=== PATIENT | female | born 1960 | race American Indian/Alaskan Native ===

== ENCOUNTER 2016-06-03 07:23 | Emergency (ER) | payer MEDICAID ==
[2016-06-03 07:52] VITALS: BP 140/77
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
== END 2016-06-03 10:20 | disposition home or self-care (01) ==
LOC: ED 07:23
DX: G89.29 Other chronic pain (principal); M62.838 Other muscle spasm; M25.562 Pain in left knee; R51 Headache
CPT/HCPCS: 99282

== ENCOUNTER 2017-02-21 09:07 | Outpatient (CLI) | payer MEDICAID ==
--- NOTE | 2017-02-21 11:38 | XRay Report ---
Cervical spine series: Cervical pain. Routine views are obtained in addition to the lateral flexion and extension views. Large traction spurs are identified anteriorly bridging the C4-C7 levels. Posterior spurs are present inferiorly at C4. The interspace between C4-5 is significantly narrowed and mild narrowing between C5 and C6. No subluxation identified on the flexion and extension views. There is significant compromise bilaterally at the C4 foramina. The bones appear generally osteopenic. Impressions: Significant degenerative disease predominantly at the C4-5 level with lesser changes at C5-6. Lumbar spine series: Back pain. Anterior traction spurs are noted inferiorly at L2 and L5 levels. The vertebral height, alignment, and interspaces are preserved. The apophyseal joints are aligned and relatively preserved. The bones appear relatively well mineralized for age. Impression: Mild spondylosis as indicated. No acute finding suspected.
== END 2017-02-21 09:08 | disposition home or self-care (01) ==
LOC: XRAY 09:07
PROVIDERS: ATTEND Internal Medicine
DX: M47.812 Spondylosis without myelopathy or radiculopathy, cervical region (principal); M47.814 Spondylosis without myelopathy or radiculopathy, thoracic region; M50.321 Other cervical disc degeneration at C4-C5 level
CPT/HCPCS: 72050; 72114

== ENCOUNTER 2017-02-28 08:18 | Outpatient (CLI) | payer MEDICAID ==
[2017-02-28 08:51] LABS: Hematocrit 41.8 % (30.3-42.9); Mean Corpuscular HGB Conc 34 % (30-34); Mean Corpuscular Hemoglobin 32 pg (28-32); Mean Corpuscular Volume 96 fl (79-97); Platelet Count 310 K/mm3 (140-440); Red Blood Count 4.35 M/mm3 (3.65-5.03)
[2017-02-28 09:16] LABS: Albumin 4.1 g/dL (3.9-5); BUN/Creatinine Ratio 28; Blood Urea Nitrogen 17 mg/dL (7-17); Calcium 9.2 mg/dL (8.4-10.2); Hemolysis Index 104; Lipase 42 units/L (13-60)
[2017-02-28 09:21] LABS: Free T4 (Free Thyroxine) 1.21 ng/dL (0.76-1.46)
[2017-02-28 10:45] LABS: Basophils % (Manual) 0 % (0.0-1.8); Eosinophils % (Manual) 0 % (0.0-4.3); Total Cells Counted 100
[2017-02-28 10:46] LABS: Large Platelets Rare; Platelet Estimate Consistent w Auto; RBC Morphology Normal
[2017-02-28 11:32] LABS: Alanine Aminotransferase 35 units/L (7-56)
[2017-02-28 14:40] LABS: Chol/HDL Ratio 5.63 %; HDL Cholesterol 47 mg/dL (40-59); LDL Cholesterol,Direct 185 mg/dL (50-130)
== END 2017-02-28 08:19 | disposition home or self-care (01) ==
LOC: LAB 08:18
DX: Z11.59 Encounter for screening for other viral diseases (principal); K76.0 Fatty (change of) liver, not elsewhere classified; J02.9 Acute pharyngitis, unspecified; K29.20 Alcoholic gastritis without bleeding; E78.2 Mixed hyperlipidemia; R19.7 Diarrhea, unspecified; R16.0 Hepatomegaly, not elsewhere classified
CPT/HCPCS: 36415; 80053; 80061; 82106; 82150; 83690; 84439; 84443; 85007; 85025

== ENCOUNTER 2017-05-25 05:50 | Day surgery (SDC) | payer MEDICAID ==
[~2017-05-25 05:50] MED LIST: NACL 0.9% IR ONE; VANCOMYCIN PHARMACY TO DOSE IV SCH
[2017-05-25] MEDS ORDERED: VERSED IV NR (06:00)
[2017-05-25] MEDS ORDERED: LACTATED RINGERS 1,000 ML IV SCH (06:00)
[2017-05-25] MEDS ORDERED: NACL BACTERIOSTATIC INFILTRATI ONE (07:02)
[2017-05-25] MEDS ORDERED: MARCAINE 0.5% 30 ML INFILTRATI ONE (07:26)
[2017-05-25] MEDS ORDERED: DIPRIVAN 10 MG/ML IV ONE (07:33)
--- NOTE | 2017-05-25 07:35 | Anesthesia Consultation ---
Anesthesia Consult and Med Hx Date of service: 05/25/17 - Airway Anesthetic Teeth Evaluation: Poor (missing) ROM Head & Neck: Adequate Mental/Hyoid Distance: Adequate Mallampati Class: Class III Intubation Access Assessment: Probably Good - Pulmonary Exam CTA: Yes - Cardiac Exam Cardiac Exam: RRR - Pre-Operative Health Status ASA Pre-Surgery Classification: ASA3 Proposed Anesthetic Plan: General - Pulmonary Hx Smoking: Yes (2 CIG/DAY FOR 15 YEARS) Hx Asthma: Yes COPD: No Hx Pneumonia: No - Cardiovascular System Hx Hypertension: Yes (GREATER THAN 10 YEARS) - Central Nervous System Hx Psychiatric Problems: Yes (schizophrenia, anxiety) - Endocrine Hx End Stage Renal Disease: No Hx Non-Insulin Dependent Diabetes: Yes - Hematic Hx Anemia: No - Other Systems Hx Alcohol Use: Yes (DAILY) Hx Substance Use: Yes (h/o alcohol abuse) Hx Cancer: No Hx Obesity: Yes - Additional Comments Anesthesia Medical History Comments: STANLEY. medical clearance appreciated
--- NOTE | 2017-05-25 07:35 | Anesthesia Day of Surgery ---
Anesthesia Day of Surgery - Day of Surgery Patient Examined: Yes Patient H&P Reviewed: Yes Patient is NPO: Yes
[2017-05-25] MEDS ORDERED: SUBLIMAZE ONE (07:44)
[2017-05-25] MEDS ORDERED: PROVENTIL IH PRN (07:45)
[2017-05-25] MEDS ORDERED: VANCOMYCIN/0.45 NS 1 GM/250 ML 1 GM/250 ML BAG IV SCH (08:00)
[2017-05-25] MEDS ORDERED: PEPCID IV NR (08:00)
[2017-05-25] MEDS ORDERED: VANCOMYCIN/NS 1 GM/250 ML 1 GM/250 ML BAG IV SCH (08:00)
[2017-05-25] MEDS ORDERED: MARCAINE 0.5% INFILTRATI ONE (08:33)
[2017-05-25] MEDS ORDERED: ZEMURON IV ONE (08:58)
[2017-05-25] MEDS ORDERED: XYLOCAINE CARDIAC IV ONE (08:58)
[2017-05-25] MEDS ORDERED: ZOFRAN ONE (08:58)
[2017-05-25] MEDS ORDERED: NEOSTIGMINE ONE (08:58)
[2017-05-25] MEDS ORDERED: NACL 0.9% IR ONE (09:05)
--- NOTE | 2017-05-25 09:12 | Discharge Summary ---
Short Stay Discharge Plan Activity: other (observe x 4 hrs then june d/c if stable. ice chips today. cl liq in am. solid diet in 48 hrs. no lifting over 5 lbs x 2 wks. keep dressings dry x 5 days) Weight Bearing Status: Partial Weight Bearing Diet: other Wound: keep clean and dry Additional Instructions: aleve I po q 6-8 hrs prn for breakthrough pain. surfak I po q am x 3 Call if any abd pain N, V or fever. Follow up with: BEV COLE MD [Staff Physician] - 7 Days
[2017-05-25] MEDS ORDERED: ROBINUL ONE (09:21)
--- NOTE | 2017-05-25 09:38 | Operative Report ---
PREOPERATIVE DIAGNOSES: 1. Abdominal pain and rule out incisional/ventral hernia. 2. Rule out adhesions. PROCEDURE: 1. Diagnostic laparoscopy. 2. Lysis of adhesions. 3. Laparoscopic ventral hernia repair with mesh. SURGEON: Musa Chavira MD QC TECH: __Mae___. ANESTHESIA: General. ESTIMATED BLOOD LOSS: Minimal. DRAINS: No drains. COMPLICATIONS: No complications. DESCRIPTION OF PROCEDURE: The patient was taken to the operating room, prepped and draped in usual sterile fashion. Veress needle was inserted and CO2 insufflation begun. A 5 mm trocar was then inserted and camera inserted. Inspection of the abdomen revealed extensive amount of lower thickened omental adhesions from previous [employer] surgery in the low midline region. Also, incisional hernia was indeed noted in an old trocar site in the subxiphoid area from a previous cholecystectomy. Lysis of adhesions was performed using the EndoShears with cautery as well as the Harmonic scalpel. The area was inspected for bleeding and noted to be dry. Attention was then focused to the hernia site. The falciform ligament was transected using the Harmonic scalpel. The fascial defect was then well visualized. A 10 trocar was inserted over the fascial defect. A circular Ventralex medium mesh was then placed through the trocar in pullback to the peritoneum. A tacker was then used to tack the mesh in its entire circumference. A second internal layer flavio also placed. Pictures were taken of pre-and post-repair as well as pictures of the adhesions and lysis of adhesions. All areas were then inspected and noted to be dry. The lysed omentum was also inspected and no oozing or bleeding noted. The hernia site was noted to be well covered. No other fascial defects noted. Two 5-mm lateral ports were then removed under direct visualization. No bleeding or oozing noted. The final 5 mm trocar was used to expel the CO2 and the trocar removed. The fascia was then covered over the incisional hernia site including the portion of the strap for added security. All areas were irrigated copiously and dried. Checked for hemostasis and noted to be dry. The skin in all port sites was closed with subcuticular 4-0 Vicryl. A 0.5% Marcaine was infiltrated over the port site for postoperative pain relief. The patient tolerated the procedure well and left the OR in stable condition. JOB# [id number] DEANA/SINAI ESPINOZA
[2017-05-25] MEDS: DILAUDID IV PRN ×4 (10:12→10:45)
[2017-05-25] MEDS ORDERED: PROVENTIL IH NR (10:30)
[2017-05-25] MEDS ORDERED: NORCO 5/325 PO PRN (12:00)
--- NOTE | 2017-05-25 14:27 | Post Anesthesia Evaluation ---
- Post Anesthesia Evaluation Patient Participated: Yes Airway Patent: Yes Stable Respiratory Function: Yes Nausea/Vomiting: No Temp > 96.8F: Yes Pain Manageable: Yes Adequeate Hydration: Yes Anesthesia Complications: No
[2017-05-25 17:39] VITALS: BP 105/65
== END 2017-05-25 14:37 | disposition home or self-care (01) ==
LOC: OR 05:50
PROVIDERS: ATTEND Surgery
PROC: 0WQF4ZZ Repair Abdominal Wall, Percutaneous Endoscopic Approach (ICD-10-PCS; principal; 2017-05-25)
DX: K43.9 Ventral hernia without obstruction or gangrene (principal); K66.0 Peritoneal adhesions (postprocedural) (postinfection); I10 Essential (primary) hypertension; J45.909 Unspecified asthma, uncomplicated; E11.9 Type 2 diabetes mellitus without complications; E66.9 Obesity, unspecified; F20.9 Schizophrenia, unspecified; F17.210 Nicotine dependence, cigarettes, uncomplicated; F41.9 Anxiety disorder, unspecified; Z79.899 Other long term (current) drug therapy; Z88.0 Allergy status to penicillin; Z88.8 Allergy status to other drugs, medicaments and biological substances; Z91.018 Allergy to other foods; Z90.49 Acquired absence of other specified parts of digestive tract
CPT/HCPCS: 49652; 82962; C1781; J1170; J2001; J2250; J2405; J2704; J2710; J3010; J3370; J7120

== ENCOUNTER 2017-10-04 07:05 | Emergency (ER) | payer MEDICAID ==
[2017-10-04 07:16] VITALS: BP 141/64
[2017-10-04] MEDS ORDERED: TYLENOL PO ONE (08:55)
--- NOTE | 2017-10-04 09:06 | Emergency Department Report ---
ED Fall HPI - General Chief Complaint: Fall Stated Complaint: BACK PAIN Time Seen by Provider: 10/04/17 08:23 Source: patient Mode of arrival: Ambulatory - History of Present Illness Initial Comments: This is a 57-year-old female nontoxic, well nourished in appearance, no acute signs of distress presents to the ED with c/o of bilateral knee pain and low back pain 2 days. Patient stated that she had a ground level fall and landed on her knees and fell back on her back. Patient denies any other trauma. Patient denies any head trauma. Patient denies any numbness, tingling, fever, chills, nausea, vomiting, chest pain, shortness of breath, headache, stiff neck. Patient denies any joint swelling or joint redness. Patient denies decreased range of motion. Patient stated has decreased gait due to pain. Allergies includes PCN and Ibuprofen. MD Complaint: fall -: days(s) (2) Fall From: standing Fall Witnessed: no Place Fall Occurred: home Loss of Consciousness: none Prolonged Down Time?: no Symptoms Prior to Fall: none Location: back Location - Extremities: Left: Knee, Right: Knee Severity: mild Severity scale (0 -10): 8 Quality: aching Context: tripped/slipped Associated Symptoms: denies. denies: headache, neck pain, numbness, weakness, chest paint, shortness of breath, abdominal pain, hematuria, unable to walk, lightheaded, vertigo, confusion - Related Data Home Medications Medication Instructions Recorded Confirmed Last Taken Citalopram [celeXA] 20 mg PO QDAY 05/25/17 05/25/17 05/22/17 Divalproex Sodium [Depakote ER] 500 mg PO 05/25/17 05/24/17 Fenofibrate Nanocrystallized 145 mg PO 05/25/17 05/23/17 [Fenofibrate] Loratadine [Claritin] 10 mg PO DAILY 05/25/17 05/25/17 05/21/17 Meloxicam [Mobic] 7.5 mg PO BID 05/25/17 05/25/17 05/16/17 Metformin HCl 500 mg PO DAILY 05/25/17 05/25/17 05/23/17 Montelukast [Singulair] 10 mg PO DAILY 05/25/17 05/25/17 05/23/17 OLANZapine 5 mg PO 05/25/17 05/18/17 Ziprasidone [Geodon] 40 mg PO 05/25/17 05/18/17 diphenhydrAMINE [Benadryl CAP] 50 mg PO QHS PRN 05/25/17 05/25/17 05/23/17 Previous Rx's Medication Instructions Recorded Last Taken Type Docusate Sodium [Colace] 100 mg PO BID PRN #20 capsule 06/12/15 Unknown Rx Albuterol Sulfate [Ventolin HFA] 2 puff IH Q4H PRN #1 hfa.aer.ad 12/27/15 Unknown Rx Famotidine [Pepcid] 20 mg PO BID #30 tablet 12/27/15 Unknown Rx Lisinopril [Zestril TAB] 40 mg PO QDAY #30 tablet 12/27/15 05/24/17 Rx [place] Carbonate [[place] 450 mg PO DAILY #30 tablet.er 12/27/15 Unknown Rx Carbonate ER] methOCARBAMOL [Robaxin TAB] 500 mg PO BID #15 tab 06/03/16 Unknown Rx traMADol [Ultram 50 MG tab] 50 mg PO Q6HR PRN #15 tablet 06/03/16 Unknown Rx HYDROcodone/ACETAMINOPHEN [Primghar 1 - 2 each PO Q4HR PRN #30 tablet 05/25/17 Unknown Rx 10-325 Tablet] Acetaminophen [Tylenol Arthritis] 650 mg PO Q8H PRN #30 tablet.er 10/04/17 Unknown Rx Cyclobenzaprine [Flexeril] 10 mg PO QHS PRN #10 tablet 10/04/17 Unknown Rx Allergies Allergy/AdvReac Type Severity Reaction Status Date / Time banana [Banana] Allergy Intermediate Swelling Verified 10/04/17 07:15 Penicillins Allergy Swelling Verified 10/04/17 07:15 ibuprofen AdvReac Vomiting Verified 10/04/17 07:15 oatmeal Allergy Hives Uncoded 05/22/17 11:27 ED Review of Systems ROS: Stated complaint: BACK PAIN Other details as noted in HPI Constitutional: denies: chills, fever Eyes: denies: eye pain, eye discharge, vision change ENT: denies: ear pain, throat pain Respiratory: denies: cough, shortness of breath, wheezing Cardiovascular: denies: chest pain, palpitations Endocrine: no symptoms reported Gastrointestinal: denies: abdominal pain, nausea, diarrhea Genitourinary: denies: urgency, dysuria, discharge Musculoskeletal: back pain, arthralgia. denies: joint swelling Skin: denies: rash, lesions Neurological: denies: headache, weakness, paresthesias Psychiatric: denies: anxiety, depression Hematological/Lymphatic: denies: easy bleeding, easy bruising ED Past Medical Hx - Past Medical History Hx Hypertension: Yes Hx Diabetes: Yes (X 20YEARS) Hx Deep Vein Thrombosis: Yes Hx Arthritis: Yes Hx Psychiatric Treatment: Yes (schizophrenia, ANXIETY) Hx Asthma: Yes Hx COPD: No Hx HIV: No Additional medical history: anemia - Surgical History Hx Cholecystectomy: Yes Additional Surgical History: X 3 - Social History Smoking Status: Current Every Day Smoker Substance Use Type: None - Medications Home Medications: Home Medications Medication Instructions Recorded Confirmed Last Taken Type Docusate Sodium [Colace] 100 mg PO BID PRN #20 capsule 06/12/15 12/26/15 Unknown Rx Albuterol Sulfate [Ventolin HFA] 2 puff IH Q4H PRN #1 hfa.aer.ad 12/27/15 Unknown Rx Famotidine [Pepcid] 20 mg PO BID #30 tablet 12/27/15 Unknown Rx Lisinopril [Zestril TAB] 40 mg PO QDAY #30 tablet 12/27/15 05/24/17 Rx [place] Carbonate [[place] 450 mg PO DAILY #30 tablet.er 12/27/15 Unknown Rx Carbonate ER] methOCARBAMOL [Robaxin TAB] 500 mg PO BID #15 tab 06/03/16 Unknown Rx traMADol [Ultram 50 MG tab] 50 mg PO Q6HR PRN #15 tablet 06/03/16 Unknown Rx Citalopram [celeXA] 20 mg PO QDAY 05/25/17 05/25/17 05/22/17 History Divalproex Sodium [Depakote ER] 500 mg PO 05/25/17 05/24/17 History Fenofibrate Nanocrystallized 145 mg PO 05/25/17 05/23/17 History [Fenofibrate] HYDROcodone/ACETAMINOPHEN [Primghar 1 - 2 each PO Q4HR PRN #30 tablet 05/25/17 Unknown Rx 10-325 Tablet] Loratadine [Claritin] 10 mg PO DAILY 0405/25/17 05/21/17 History Meloxicam [Mobic] 7.5 mg PO BID 05/25/17 05/25/17 05/16/17 History Metformin HCl 500 mg PO DAILY 05/25/17 05/25/17 05/23/17 History Montelukast [Singulair] 10 mg PO DAILY 05/25/17 05/25/17 05/23/17 History OLANZapine 5 mg PO 05/25/17 05/18/17 History Ziprasidone [Geodon] 40 mg PO 05/25/17 05/18/17 History diphenhydrAMINE [Benadryl CAP] 50 mg PO QHS PRN 05/25/17 05/25/17 05/23/17 History Acetaminophen [Tylenol Arthritis] 650 mg PO Q8H PRN #30 tablet.er 10/04/17 Unknown Rx Cyclobenzaprine [Flexeril] 10 mg PO QHS PRN #10 tablet 10/04/17 Unknown Rx ED Physical Exam - General Limitations: No Limitations General appearance: alert, in no apparent distress - Head Head exam: Present: atraumatic, normocephalic - Eye Eye exam: Present: normal appearance Pupils: Present: normal accommodation - ENT ENT exam: Present: normal exam, mucous membranes moist - Neck Neck exam: Present: normal inspection, full ROM. Absent: tenderness, meningismus, lymphadenopathy - Respiratory Respiratory exam: Present: normal lung sounds bilaterally. Absent: respiratory distress, wheezes, rales, rhonchi, stridor, chest wall tenderness, accessory muscle use, decreased breath sounds, prolonged expiratory - Cardiovascular Cardiovascular Exam: Present: regular rate, normal rhythm, normal heart sounds. Absent: bradycardia, tachycardia, irregular rhythm, systolic murmur, diastolic murmur, rubs, gallop - GI/Abdominal GI/Abdominal exam: Present: soft, normal bowel sounds. Absent: distended, tenderness, guarding, rebound, rigid, diminished bowel sounds - Rectal Rectal exam: Present: deferred - Extremities Exam Extremities exam: Present: normal inspection, full ROM, tenderness, normal capillary refill. Absent: joint swelling - Expanded Lower Extremity Exam Left Hip exam: Present: normal inspection (bilateral exam), full ROM (bilateral exam) . Absent: tenderness, swelling Upper Leg exam: Present: normal inspection (bilateral exam), full ROM ( bilateral exam). Absent: tenderness, swelling Knee exam: Present: normal inspection (bilateral exam), full ROM (bilateral exam ), tenderness (bilateral exam), full knee extension (bilateral exam). Absent: swelling, abrasion, laceration, ecchymosis, deformity, crepidus, dislocation, effusion, pain w/ pronation/supination, posterior draw sign, pain/laxity with valgus, pain/laxity with varus Lower Leg exam: Present: normal inspection (bilateral exam), full ROM ( bilateral exam). Absent: tenderness, swelling Ankle exam: Present: normal inspection (bilateral exam), full ROM (bilateral exam). Absent: tenderness, swelling Foot/Toe exam: Present: normal inspection (bilateral exam), full ROM (bilateral exam). Absent: tenderness, swelling Neuro vascular tendon exam: Present: no vascular compromise (bilateral exam). Absent: pulse deficit, abnormal cap refill, motor deficit, sensory deficit, tendon deficit, extremity cold to touch, pallor, abnormal 2-point discrimination , decreased fine/light touch, foot drop, peroneal nerve deficit, significant pain with passive ROM of distal joint Gait: Positive: observed and normal (bilateral exam) - Back Exam Back exam: Present: normal inspection, full ROM, paraspinal tenderness (lumbar paraspinal). Absent: tenderness, CVA tenderness (R), CVA tenderness (L), muscle spasm, vertebral tenderness, rash noted - Expanded Back Exam Expanded Back exam: Absent: saddle anesthesia Back exam: Negative Straight Leg Raising: Left, Right - Neurological Exam Neurological exam: Present: alert, oriented X3, normal gait - Psychiatric Psychiatric exam: Present: normal affect, normal mood - Skin Skin exam: Present: warm, dry, intact, normal color. Absent: rash ED Course Vital Signs 10/04/17 07:15 Temperature 98.9 F Pulse Rate 75 Respiratory 18 Rate Blood Pressure 141/64 O2 Sat by Pulse 99 Oximetry - Reevaluation(s) Reevaluation #1: 10/04/17 09:06 Patient is speaking in full sentences with no signs of distress noted. ED Medical Decision Making - Medical Decision Making This is a 57-year-old female that presents with low back strain and bilateral knee strains. Patient is stable was examined by me. There is no spinal tenderness. There is no cauda equina syndrome during examination. No bladder or bowel instability. I referred patient to an orthopedic doctor for further evaluation for possible MRI. X-ray has been obtained and dictated by the radiologist. Patient is notified of the x-ray report with noted by the patient. Patient does have normal gait with no tenderness and no joint swelling. No ecchymosis. no joint redness or swelling. Not warm to touch. No signs of cellulites present. Patient received Motrin in the ED which preceded his symptoms has resolved and subsided. Patient is discharged with muscle relaxant and Motrin. Patient has a walker in the ED. Patient was instructed not to operate any machinery while taking muscle relaxant as they cause her drowsiness. Patient was referred to Follow-up with a primary care/orthopedic doctor in 3-5 days or if symptoms worsen and continue return to emergency room as soon as possible. At time of discharge, the patient does not seem toxic or ill in appearance. No acute signs of distress noted. Patient agrees to discharge treatment plan of care. No further questions noted by the patient. This chart is dictated with using [employer] D[employer]ation [employer] Critical care attestation.: If time is entered above; I have spent that time in minutes in the direct care of this critically ill patient, excluding procedure time. ED Disposition Clinical Impression: Strain of knee, bilateral Low back strain Qualifiers: Encounter type: initial encounter Qualified Code(s): S39.012A - Strain of muscle, fascia and tendon of lower back, initial encounter Disposition: TO HOME OR SELFCARE Is pt being admited?: No Does the pt Need Aspirin: No Condition: Stable Instructions: Low Back Strain (ED), Cyclobenzaprine (By mouth), Knee Pain (ED) , RICE Therapy (ED) Additional Instructions: Follow-up with a primary care/orthopedic doctor in 3-5 days or if symptoms worsen and continue return to emergency room as soon as possible. Take ibuprofen and Flexeril as prescribed. Do not operate heavy machinery while taking Flexeril due to sedation Prescriptions: Cyclobenzaprine [Flexeril] 10 mg PO QHS PRN #10 tablet PRN Reason: Muscle Spasm Acetaminophen [Tylenol Arthritis] 650 mg PO Q8H PRN #30 tablet.er PRN Reason: Pain, Moderate (4-6) Referrals: FUNMI SUERO MD [Primary Care Provider] - 3-5 Days KEKE NOEL MD [Staff Physician] - 3-5 Days [facility] [Outside] - 3-5 Days [facility] [Outside] - 3-5 Days Forms: Work/School Release Form(ED)
--- NOTE | 2017-10-04 09:54 | XRay Report ---
LUMBOSACRAL SPINE, 3 VIEWS: History: Low back pain Findings: Normal height and alignment of lumbar vertebra. Moderate degenerative disc disease is noted at L5-S1. Mild diffuse facet arthropathy. The sacrum and SI joints are unremarkable. No significant change is demonstrated since 02/21/17. Impression: Lumbar spondylosis as described. No acute process is noted.
--- NOTE | 2017-10-04 09:56 | XRay Report ---
BILATERAL KNEES, 3 VIEWS History: Bilateral knee pain Findings: Mild to moderate osteoarthritic changes are identified in the medial compartments of both knees. The left knee is slightly more affected. There is no evidence for fracture or bone lesion. There is a 1.7 cm calcific density in the popliteal fossa on the left side which probably represents a calcified foreign body within a popliteal cyst. The soft tissues are unremarkable otherwise. Impression: Osteoarthritis as described. Probable calcified foreign body in the left popliteal cyst.
== END 2017-10-04 10:11 | disposition home or self-care (01) ==
LOC: ED 07:05
DX: S39.012A Strain of muscle, fascia and tendon of lower back, initial encounter (principal); S83.91XA Sprain of unspecified site of right knee, initial encounter; S83.92XA Sprain of unspecified site of left knee, initial encounter; I10 Essential (primary) hypertension; E11.9 Type 2 diabetes mellitus without complications; M19.90 Unspecified osteoarthritis, unspecified site; F20.9 Schizophrenia, unspecified; J45.909 Unspecified asthma, uncomplicated; D64.9 Anemia, unspecified; F17.200 Nicotine dependence, unspecified, uncomplicated; Z90.49 Acquired absence of other specified parts of digestive tract; Z88.0 Allergy status to penicillin; Z91.018 Allergy to other foods; Z88.6 Allergy status to analgesic agent; Z79.899 Other long term (current) drug therapy; Z86.718 Personal history of other venous thrombosis and embolism; W18.39XA Other fall on same level, initial encounter; Y93.89 Activity, other specified; Y99.8 Other external cause status; Y92.098 Other place in other non-institutional residence as the place of occurrence of the external cause
CPT/HCPCS: 72100

== ENCOUNTER 2018-04-05 09:16 | Outpatient (CLI) | payer MEDICAID ==
[2018-04-05 10:46] LABS: Basophils # (Auto) 0.1 K/mm3 (0.0-0.1); Basophils % (Auto) 1.3 % (0.0-1.8); Eosinophils # (Auto) 0.1 K/mm3 (0.0-0.4); Eosinophils % (Auto) 0.7 % (0.0-4.3); Hematocrit 41.5 % (30.3-42.9); Hemoglobin 14.3 gm/dl (10.1-14.3); Lymphocytes # (Auto) 3.9 K/mm3 (1.2-5.4); Lymphocytes % (Auto) 49.9 % (13.4-35.0); Mean Corpuscular HGB Conc 34 % (30-34); Mean Corpuscular Volume 96 fl (79-97); Monocytes # (Auto) 0.5 K/mm3 (0.0-0.8); Monocytes % (Auto) 6.8 % (0.0-7.3); Platelet Count 278 K/mm3 (140-440); Red Blood Count 4.31 M/mm3 (3.65-5.03); Red Cell Distribution Width 13.1 % (13.2-15.2)
[2018-04-05 11:04] LABS: Alanine Aminotransferase 49 units/L (7-56); Albumin 4.4 g/dL (3.9-5); BUN/Creatinine Ratio 26; Blood Urea Nitrogen 13 mg/dL (7-17); Calcium 9.4 mg/dL (8.4-10.2); HDL Cholesterol 49 mg/dL (40-59); Hemolysis Index 5; LDL Cholesterol,Direct 153 mg/dL (50-130)
[2018-04-05 12:12] LABS: Hepatitis B Surface Antigen Non-Reactive (Negative); Hepatitis C Virus Antibody Non-Reactive (NonReactive)
== END 2018-04-05 09:17 | disposition home or self-care (01) ==
LOC: LAB 09:16
PROVIDERS: ATTEND Internal Medicine
DX: E11.9 Type 2 diabetes mellitus without complications (principal); I10 Essential (primary) hypertension; E55.9 Vitamin D deficiency, unspecified; E78.5 Hyperlipidemia, unspecified; J45.901 Unspecified asthma with (acute) exacerbation; M19.90 Unspecified osteoarthritis, unspecified site; Z87.891 Personal history of nicotine dependence; Z72.89 Other problems related to lifestyle
CPT/HCPCS: 36415; 80053; 80061; 80074; 82306; 83036; 85025

== ENCOUNTER 2018-05-23 09:34 | Outpatient (CLI) | payer MEDICAID ==
[2018-05-23 10:26] LABS: Blood Urea Nitrogen 11 mg/dL (7-17)
--- NOTE | 2018-05-23 16:44 | Cat Scan Report ---
PROCEDURE: CT ABDOMEN PELVIS WO CON HISTORY: ADHESIONS, VENTRAL HERNIA FINDINGS: Unenhanced CT of the abdomen and pelvis was performed and data was reformatted in the sagit kim and coronal planes. Comparison is made with prior examination of January 31, 2018. The heart is normal in size. There is lingular linear atelectasis but otherwise the lung bases appear clear. ABDOMEN: There has been a cholecystectomy. There is mild fatty infiltration of the liver. The spleen is unremarkable. The adrenal glands are within normal limits. No focal pancreatic lesion is seen. There has been an anterior ventral hernia repair. No recurrent hernia ventral is seen in this region. There is a small fat-containing umbilical hernia. No bowel extends into this hernia. Pelvis: There is a normal appendix. There is no evidence of diverticulitis. The uterus, adnexa and urinary bl adder are within normal limits. There is no free air. IMPRESSION: ABDOMEN: Cholecystectomy No bowel obstruction Pelvis: Normal appendix This document is electronically signed by Eladio Mejia MD., May 23 2018 04:42:29 PM ET
== END 2018-05-23 09:35 | disposition home or self-care (01) ==
LOC: CT 09:34
PROVIDERS: ATTEND Surgery
DX: K43.9 Ventral hernia without obstruction or gangrene (principal); K66.0 Peritoneal adhesions (postprocedural) (postinfection); K76.0 Fatty (change of) liver, not elsewhere classified; J45.901 Unspecified asthma with (acute) exacerbation; M19.90 Unspecified osteoarthritis, unspecified site; Z90.49 Acquired absence of other specified parts of digestive tract; F17.200 Nicotine dependence, unspecified, uncomplicated
CPT/HCPCS: 36415; 74176; 82565; 84520

== ENCOUNTER 2018-07-26 08:46 | Outpatient (CLI) | payer MEDICAID ==
[2018-07-26 10:39] LABS: Chol/HDL Ratio 5.45 %
[2018-07-31 15:08] LABS: Vitamin D, 25-OH, D2 <4 ng/mL
== END 2018-07-26 08:47 | disposition home or self-care (01) ==
LOC: LAB 08:46
PROVIDERS: ATTEND Internal Medicine
DX: E11.9 Type 2 diabetes mellitus without complications (principal); E78.5 Hyperlipidemia, unspecified; E55.9 Vitamin D deficiency, unspecified; J45.909 Unspecified asthma, uncomplicated; I10 Essential (primary) hypertension; Z90.710 Acquired absence of both cervix and uterus
CPT/HCPCS: 36415; 80061; 82306; 83036

== ENCOUNTER 2018-11-19 08:47 | Outpatient (CLI) | payer MEDICAID ==
[2018-11-19 12:03] LABS: Alanine Aminotransferase 60 units/L (7-56); Albumin 4.6 g/dL (3.9-5); BUN/Creatinine Ratio 17; Blood Urea Nitrogen 10 mg/dL (7-17); Calcium 9.2 mg/dL (8.4-10.2); Chol/HDL Ratio 5.31 %; HDL Cholesterol 47 mg/dL (40-59); Hemolysis Index 4; LDL Cholesterol,Direct TNR mg/dL (50-130)
== END 2018-11-19 08:48 | disposition home or self-care (01) ==
LOC: LAB 08:47
PROVIDERS: ATTEND Internal Medicine
DX: E78.5 Hyperlipidemia, unspecified (principal); R94.5 Abnormal results of liver function studies; I10 Essential (primary) hypertension; Z90.49 Acquired absence of other specified parts of digestive tract; Z90.710 Acquired absence of both cervix and uterus
CPT/HCPCS: 36415; 80053; 80061

== ENCOUNTER 2019-11-21 05:59 | Emergency (ER) | payer MEDICAID ==
[2019-11-21 06:15] VITALS: BP 150/91
--- NOTE | 2019-11-21 09:16 | Emergency Department Report ---
Chief Complaint: Extremity Problem,Nontraumatic Stated Complaint: KNEE PAIN/SEVERE HEADACHES Time Seen by Provider: 11/21/19 08:22 - HPI History of Present Illness: Patient is a 59-year-old female who presents emergency room with complaints of bilateral knee pain that has been ongoing for over a week. She denies any fall or injury. She states that she has had this knee pain for several years in the past. She has not seen a primary care doctor or an orthopedic since her knee pain has been exacerbating. She is ambulatory and she chronically walks with a walker. She denies any numbness or weakness. She has a past medical history of DM, HTN, asthma. She states that she did have a laparoscopic procedure on her left knee several years ago. Vitals are stable On exam: Non toxic appearing, no acute distress atraumatic, normocephalic normal appearance of the eyes, EOMI, no periorbital edema or ecchymosis moist mucus membranes no respiratory distress, no accessory muscle use No bony tenderness to palpation of the bilateral lower extremities, no edema of the bilateral extremities, no calf tenderness bilaterally, full range of motion of the bilateral lower extremities without difficulty, no obvious joint laxity, no joint edema, no erythema, no increased warmth, no skin changes, neurovascularly intact A&O x4, no focal neuro deficit skin is warm, dry, intact Patient is presenting with bilateral knee pain She has had no trauma She has no bony tenderness palpation, she has full range of motion She has no clinical signs of DVT, gout, septic joint, she has strong 2+ distal pulses, no signs of large joint effusion Symptoms are likely related to arthritis and this is most likely a chronic problem Discussed supportive care and symptomatic treatment with patient pt Will be referred to a primary care physician and orthopedic Discussed strict return precautions with patient Medical screening examination performed and there is no threat to life or limb at this time - Exam Vital Signs: Vital Signs 11/21/19 06:08 Temperature 98.1 F Pulse Rate 84 Respiratory 18 Rate Blood Pressure 150/91 O2 Sat by Pulse 97 Oximetry MSE screening note: Focused history and physical exam performed. ED Disposition for MSE Clinical Impression: Bilateral knee pain Qualifiers: Chronicity: acute Qualified Code(s): M25.561 - Pain in right knee; M25.562 - Pain in left knee Disposition: MED SCREENING EXAM-LEFT Is pt being admited?: No Does the pt Need Aspirin: No Condition: Stable Instructions: Arthralgia (ED) Additional Instructions: May take Tylenol as needed for discomfort. May use ice pack, heating pad, rest, Epson salt bath. May elevate the legs. Follow-up with orthopedic doctor. Follow-up with your primary care doctor. Return to emergency room for any new or worsening symptoms. Referrals: PRIMARY CARE, [Primary Care Provider] - 2-3 Days JESUS BIGGS MD [Staff Physician] - 2-3 Days [facility] [Provider Group] - 2-3 Days KEKE NOEL MD [Staff Physician] - 2-3 Days [facility] [Provider Group] - 2-3 Days Time of Disposition: 09:15 Print Language: FIJIAN
== END 2019-11-21 09:21 | disposition left against medical advice (07) ==
LOC: ED 05:59
DX: M25.562 Pain in left knee (principal); M25.561 Pain in right knee; Z53.21 Procedure and treatment not carried out due to patient leaving prior to being seen by health care provider

== ENCOUNTER 2020-03-13 08:23 | Outpatient (CLI) | payer MEDICAID ==
--- NOTE | 2020-03-13 10:02 | Ultrasound Report ---
ULTRASOUND ABDOMEN, LIMITED (RIGHT UPPER QUADRANT) INDICATION / CLINICAL INFORMATION: ABNORMAL LIVER FUNCTION RESULTS. COMPARISON: None available. FINDINGS: PANCREAS: Visualized portion shows no significant abnormality. LIVER: The liver measures 12.9 cm in length and demonstrates diffusely increased echogenicity. GALLBLADDER: No significant abnormality. BILE DUCTS: No significant abnormality. Common bile duct measures 2 mm. RIGHT KIDNEY: The right kidney measures 9.8 cm in length and is normal in echogenicity. FREE FLUID: None. ADDITIONAL FINDINGS: None. IMPRESSION: 1. Hepatic steatosis. Signer Name: Brent Tran MD Signed: 03/13/2020 9:58 AM Workstation Name: [id number]
--- NOTE | 2020-03-13 10:13 | XRay Report ---
LUMBOSACRAL SPINE 3 VIEWS INDICATION: LOW BACK PAIN. COMPARISON: None. IMPRESSION: Normal alignment. Mild degenerative disc disease is identified at L4-5 and L5-S1. Mild diffuse facet arthropathy. The SI joints are unremarkable. No acute osseous or soft tissue abnormali ty. LEFT KNEE 3 VIEWS INDICATION: LOW BACK PAIN. COMPARISON: None. IMPRESSION: No acute osseous or soft tissue abnormality. Moderate tricompartmental osteoarthritic changes are identified. The medial compartment is most affected. Chronic calcification measuring up to 1.3 cm overlies the course of the MCL suggesting chronic MCL injury. There is also a large calcifi ed body in the popliteal fossa measuring 1.8 cm which presumably represents a foreign body in a popli teal cyst. There is also a moderate joint effusion extending to the suprapatellar bursa. Signer Name: Adan Tsang Jr, MD Signed: 03/13/2020 10:09 AM Workstation Name: [id number]
[2020-03-13 10:34] LABS: Basophils # (Auto) 0.1 K/mm3 (0.0-0.1); Basophils % (Auto) 0.8 % (0.0-1.8); Eosinophils # (Auto) 0.1 K/mm3 (0.0-0.4); Eosinophils % (Auto) 0.7 % (0.0-4.3); Hematocrit 41.2 % (30.3-42.9); Hemoglobin 14.6 gm/dl (10.1-14.3); Lymphocytes # (Auto) 3.3 K/mm3 (1.2-5.4); Mean Corpuscular HGB Conc 36 % (30-34); Mean Corpuscular Volume 97 fl (79-97); Monocytes # (Auto) 0.6 K/mm3 (0.0-0.8); Monocytes % (Auto) 8.1 % (0.0-7.3); Platelet Count 343 K/mm3 (140-440); Red Blood Count 4.25 M/mm3 (3.65-5.03); Red Cell Distribution Width 13.3 % (13.2-15.2)
[2020-03-13 10:45] LABS: Alanine Aminotransferase 17 units/L (7-56); Albumin 4.3 g/dL (3.9-5); BUN/Creatinine Ratio 24; Blood Urea Nitrogen 26 mg/dL (7-17); Calcium 9.5 mg/dL (8.4-10.2); Chol/HDL Ratio 5.03 %; HDL Cholesterol 52 mg/dL (40-59); Hemolysis Index 7; LDL Cholesterol,Direct 197 mg/dL (50-130)
== END 2020-03-13 08:24 | disposition home or self-care (01) ==
LOC: US 08:23
PROVIDERS: ATTEND Internal Medicine
DX: K76.0 Fatty (change of) liver, not elsewhere classified (principal); M25.462 Effusion, left knee; M17.12 Unilateral primary osteoarthritis, left knee; M51.37 Other intervertebral disc degeneration, lumbosacral region; M71.22 Synovial cyst of popliteal space [Baker], left knee; Z00.00 Encounter for general adult medical examination without abnormal findings; E78.5 Hyperlipidemia, unspecified; E11.9 Type 2 diabetes mellitus without complications; I10 Essential (primary) hypertension; Z13.29 Encounter for screening for other suspected endocrine disorder; E55.9 Vitamin D deficiency, unspecified
CPT/HCPCS: 36415; 72100; 76705; 80053; 80061; 83036; 84443; 85025

== ENCOUNTER 2020-07-14 09:19 | Outpatient (CLI) | payer MEDICAID ==
[2020-07-14 10:20] LABS: Chol/HDL Ratio 3.8 %
== END 2020-07-14 09:20 | disposition home or self-care (01) ==
LOC: LAB 09:19
PROVIDERS: ATTEND Internal Medicine
DX: E11.9 Type 2 diabetes mellitus without complications (principal); E78.5 Hyperlipidemia, unspecified
CPT/HCPCS: 36415; 80061; 83036

== ENCOUNTER 2021-01-12 09:50 | Outpatient (CLI) | payer MEDICAID ==
[2021-01-12 10:50] LABS: Alanine Aminotransferase 24 units/L (7-56); Albumin 4.6 g/dL (3.9-5); Chol/HDL Ratio 3.63 %; HDL Cholesterol 57 mg/dL (40-59); LDL Cholesterol,Direct 122 mg/dL (50-130)
[2021-01-12 11:17] LABS: Bilirubin,Direct < 0.2 mg/dL (0-0.2)
== END 2021-01-12 09:51 | disposition home or self-care (01) ==
LOC: LAB 09:50
PROVIDERS: ATTEND Internal Medicine
DX: E11.9 Type 2 diabetes mellitus without complications (principal); E78.5 Hyperlipidemia, unspecified; R94.5 Abnormal results of liver function studies
CPT/HCPCS: 36415; 80061; 80076; 83036

== ENCOUNTER 2021-01-22 08:57 | Outpatient (CLI) | payer MEDICAID ==
--- NOTE | 2021-01-22 10:09 | XRay Report ---
BILATERAL KNEES 3 VIEWS INDICATION: BILATERAL KNEE PAIN. COMPARISON: Left knee 03/13/2020 IMPRESSION: Within the right knee, mild to moderate medial compartment osteoarthritic changes are evident. No ev idence for fracture, bone lesion or joint effusion. Within the left knee, moderate tricompartmental osteoarthritic changes are again noted and unchanged. Assumed chronic MCL injury is again noted. Small joint effusion is also again noted. 2.1 cm calcifie d density in the popliteal fossa probably represents a calcified intra-articular body in the poplitea l cyst. No significant change is appreciated since 03/13/2020. Signer Name: Adan Tsang Jr, MD Signed: 01/22/2021 10:05 AM Workstation Name: [id number]
== END 2021-01-22 08:58 | disposition home or self-care (01) ==
LOC: XRAY 08:57
PROVIDERS: ATTEND Internal Medicine
DX: M17.0 Bilateral primary osteoarthritis of knee (principal); M25.462 Effusion, left knee

== ENCOUNTER 2021-04-01 05:52 | Inpatient (IN) | payer MEDICAID ==
[2021-03-31 11:33] LABS: Hemoglobin 13.3 gm/dl (10.1-14.3); Mean Corpuscular HGB Conc 34 % (30-34); Mean Corpuscular Volume 97 fl (79-97); Platelet Count 345 K/mm3 (140-440); Red Blood Count 4.04 M/mm3 (3.65-5.03); Red Cell Distribution Width 13.4 % (13.2-15.2)
[2021-03-31 11:53] LABS: Alanine Aminotransferase 23 units/L (7-56); Albumin 4.3 g/dL (3.9-5); Blood Urea Nitrogen 23 mg/dL (7-17); Hemolysis Index 16
[2021-03-31 11:54] LABS: BUN/Creatinine Ratio 33
--- NOTE | 2021-03-31 12:51 | Anesthesia Consultation ---
Anesthesia Consult and Med Hx Date of service: 04/01/21 - Airway Anesthetic Teeth Evaluation: Chipped (Missing) ROM Head & Neck: Adequate Mental/Hyoid Distance: Adequate Mallampati Class: Class II Intubation Access Assessment: Good - Pre-Operative Health Status ASA Pre-Surgery Classification: ASA3 Proposed Anesthetic Plan: General Nerve Block: AC - Pulmonary Hx Smoking: Yes (SMOKED SINCE 2002) Hx Asthma: Yes (INHALER PRN) COPD: No Hx Pneumonia: No Hx Sleep Apnea: No (SHADY PRE SCREEN LOW RISK) - Cardiovascular System Hx Hypertension: Yes (X 9 YRS) - Central Nervous System CVA: Yes (TIA) Hx Back Pain: Yes Hx Psychiatric Problems: Yes (NOT COMPLIANT WITH MEDS/Bipolar/Anxiety/Schizophrenia) - Endocrine Hx End Stage Renal Disease: No Hx Liver Disease: Yes (? LIVER MASS PER H&P/ ABNORMAL LIVER FUNCTION TESTS) Hx Non-Insulin Dependent Diabetes: Yes (5.8) - Hematic Hx Anemia: Yes - Other Systems Hx Alcohol Use: Yes (ALCOHOL ABUSE PER H&P) Hx Substance Use: Yes (h/o alcohol abuse) Hx Cancer: No Hx Obesity: No
--- OUTSIDE RECORDS SUMMARY | 2021-04-01 05:54 | External Medical Summary ---
:1960 Author Organization [facility], [facility] Address [address] [place] [address] Care Team Providers Name Role Phone Landon Unavailable [phone] PROBLEMS Type Condition ICD9-CM AFI45-GC Onset Condition W/U Status Risk SNOM ED Notes Code Code Dates Status Code Problem Essential I10 Active confirmed 56684696 (primary) hypertension Problem Type 2 E11.9 Active confirmed 868510260 diabetes mellitus without complications Problem Bipolar F31.9 Active confirmed 16371567 disorder, unspecified Problem Unspecified H26.9 Active confirmed 17692053 9 cataract Problem Alcohol F10.10 Active confirmed 59283608 abuse, uncomplicated Problem Other F20.89 Active confirmed 35820110 schizophrenia Problem Low back pain M54.5 Active confirmed 716290 007 Problem Hyperlipidemi E78.5 Active confirmed 733867 04 a, unspecified Problem Vitamin D E55.9 Active confirmed 16607542 deficiency, unspecified Problem Personal Z86.73 Active confirmed 961672737 history of transient ischemic attack (TIA), and cerebral infarction without residual deficits Problem Abnormal R94.5 Active confirmed 423327690 results of liver function studies Problem Liver K76.9 Active confirmed 260175874 disease, unspecified Problem Other asthma J45.998 Active confirmed 499357 001 Problem Unilateral M17.12 Active confirmed 672432789 primary osteoarthriti s, left knee Problem Gastro-esopha K21.0 Active confirmed 266742 003 geal reflux disease with esophagitis Problem Acute N76.0 Active 96906065 Jeremy-Ri vaginitis ts Problem Vitamin E56.9 Active confirmed 12431873 deficiency, unspecified Problem Bilateral M17.0 Active confirmed 401377261 primary osteoarthriti s of knee Problem Gastro-esopha K21.9 Active confirmed 665284 005 geal reflux disease without esophagitis Problem Unspecified H60.93 Active confirmed 7390757 otitis externa, bilateral ALLERGIES Allergen (clinical Drug/Non Drug Reaction Allergy Type Onset Date S tatus drug ingredient) Allergy documented on EMR acetaminophen Tylenol([facility] rash Drug Allergy Active Code:[address]-82) Penicillins Penicillins rash Non Drug Allergy Active Motrin rash Drug Allergy Active ENCOUNTERS from 1960 to 2021-03-31 Encounter Location Date Provider Diagnosis [facility] [address] [facility] [place], Jogre nogueira [facility] [place] [address] IMMUNIZATIONS No Information SOCIAL HISTORY Sex Assigned At : Social History Observation Description Sex Assigned At Unknown REASON FOR REFERRAL from 1960 to 2021-03-31 Reason LT TKR Diagnosis 1 Hyperlipidemia, unspecified (E78.5) Diagnosis 2 Type 2 diabetes mellitus wit hout complications (E11.9) Diagnosis 3 Essential (primary) hyperten dewey (I10) Diagnosis 4 Alcohol abuse, uncomplicated (F10.10) Diagnosis 5 Other schizophrenia (F20.89) Diagnosis 6 Bipolar disorder, unspecifie d (F31.9) Diagnosis 7 Vitamin D deficiency, unspec ified (E55.9) Diagnosis 8 Pain in left knee (M25.562) Diagnosis 9 Personal history of transien t ischemic attack (TIA), and cerebral infarction with out residual deficits (Z86.73) Diagnosis 10 Abnormal results of liver fu nction studies (R94.5) Diagnosis 11 Low back pain (M54.5) Diagnosis 12 Bilateral primary osteoarthr itis of knee (M17.0) Diagnosis 13 Liver disease, unspecified ( K76.9) Referral Organization [facility] Referring Provider First Name Jorge Referring Provider Last Name Landon Referring Provider Specialty Orthopedic Surgery Referred Provider [facility], - Referral Priority Routine VITAL SIGNS No information MEDICATIONS Medication SIG (Take, Route, Notes Start Date End Date Status Frequency, Duration) Sertraline HCl 50 MG 1 tablet Orally Once a Not-Taking day Clopidogrel Bisulfate 75 1 tablet Orally Once a Active MG day for 90 days Ziprasidone HCl 60 MG 1 capsule with food Not-Taking Orally Twice a day Ciprodex 0.3-0.1 % 4 drops into affected Mar, Active ear Otic Twice a day for 7 day(s) Meloxicam 15 MG 1 tablet Orally Once a Active day for 30 day(s) Vitamin D 1 capsule Orally once Act kasia (Ergocalciferol) 24835 a week for 90 days UNIT Lisinopril 40 MG 1 tablet Orally Once a Active day for 90 days Rosuvastatin Calcium 20 1 tablet Orally Once a Active MG day for 90 days Famotidine 40 MG 1 tablet at bedtime Mar, Active Orally Once a day for 30 day(s) [place] Carbonate 300 MG 1 capsule Orally Three Not-Taking times a day metFORMIN HCl 500 MG 1 tablet with meals Active Orally Twice a day for 90 days Walker - as directed Mar, Active HYDROcodone-Acetaminophe 1 tablet as needed Feb, Active n 5-325 MG Orally every 6 hrs prn pain PROCEDURES No Information RESULTS No Results REASON FOR VISIT walker order MEDICAL (GENERAL) HISTORY Type Description Date Medical History Schizophrenia Medical History DJD Medical History Hyperlipidemia Medical History COD Medical History Addictive behavior Medical History T2DM Medical History bronchial asthma Medical History Hypertensive retinopathy Medical History alcohol abuse Medical History ventral hernia Medical History Arthritis or Joint Pain Medical History Asthma Medical History Back Pain Surgical History No know Surgical history Goals Section No Information Health Concerns No Information MEDICAL EQUIPMENT No Information MENTAL STATUS No Information FUNCTIONAL STATUS No Information ASSESSMENTS No Information PLAN OF TREATMENT Medication Medication Name Sig Start Date Stop Date Walker - as directed Mar, Referrals Referral Date Details LT TKR Next Appt Details Provider Name:Jorge Navarrete, 2021-04-01 08:00:00 AM, [address] [place], [address], Provider Name:Alexsander Cox, 04-14 08:30:00 AM, [address] [facility], [address], [place], [address], [phone] Insurance Providers Payer Name Payer Payer Insured Patient Coverage Coverage Subscriber Group Address Phone Name Relationship Start End Date Number Nu mber to Insured Date Medicaid [id number] [place], [place] self [id number] [facility] [phone]
[2021-04-01] MEDS ORDERED: ALPRAZolam 1 MG TAB PO NR (06:00)
[2021-04-01] MEDS ORDERED: fentaNYL 100 MCG/2 ML INJ IV NR (06:00)
[2021-04-01] MEDS ORDERED: GABAPENTIN 300 MG CAP PO NR (06:00)
[2021-04-01] MEDS ORDERED: MAGNESIUM OXIDE 400 MG TAB PO NR (06:00)
[2021-04-01] MEDS ORDERED: MIDAZOLAM 2 MG/2 ML INJ IV NR (06:00)
[2021-04-01] MEDS: LACTATED RINGERS 1,000 ML IV SCH ×3 (06:49→21:18)
[2021-04-01] MEDS ORDERED: VANCOMYCIN/NS 1 GM/250 ML 1 GM/250 ML BAG IV NR (07:00)
[2021-04-01] MEDS ORDERED: LIDOCAINE PF 100 MG/5 ML (CARDIAC SYRINGE) IV ONE (07:25)
[2021-04-01] MEDS ORDERED: ONDANSETRON 4 MG/2 ML INJ ONE (07:25)
[2021-04-01] MEDS ORDERED: dexAMETHasone 20 MG/5 ML VIAL ONE (07:25)
[2021-04-01] MEDS ORDERED: propofoL 200 MG/20 ML VIAL IV ONE (07:26)
[2021-04-01] MEDS ORDERED: fentaNYL 100 MCG/2 ML INJ ONE (07:28)
[2021-04-01] MEDS ORDERED: KETOROLAC 30 MG/1 ML INJ ONE (07:30)
[2021-04-01] MEDS ORDERED: MORPHINE 10 MG/1 ML INJ ONE (07:30)
[2021-04-01] MEDS ORDERED: TRANEXAMIC ACID 1,000 MG/10 ML ONE (07:30)
[2021-04-01] MEDS ORDERED: BUPIVACAINE/PF (0.5%) 5 MG/1 ML 30 ML VIAL INFILTRATI ONE ×2 (07:30→09:10)
[2021-04-01] MEDS ORDERED: dexAMETHasone 4 MG/ML VIAL ONE (07:35)
[2021-04-01] MEDS ORDERED: BUPIVACAINE/PF (0.25%) 2.5 MG/ML 30 ML VIAL INFILTRATI ONE (07:35)
--- NOTE | 2021-04-01 07:40 | Anesthesia Day of Surgery ---
Anesthesia Day of Surgery - Day of Surgery Patient Examined: Yes Patient H&P Reviewed: Yes Patient is NPO: Yes
[2021-04-01] MEDS ORDERED: BUPIVACAINE/PF (0.5%) 5 MG/1 ML 10 ML VIAL INFILTRATI ONE (07:42)
[2021-04-01] MEDS ORDERED: SODIUM CHLORIDE 0.9% 50 ML ONE (07:42)
[2021-04-01] MEDS ORDERED: SODIUM CHLORIDE 0.9% 100 ML ONE (07:42)
[2021-04-01] MEDS ORDERED: KETAMINE/STERILE WATER 50 MG/ML SYRINGE ONE (07:57)
[2021-04-01] MEDS ORDERED: HYDROmorphone 1 MG/1 ML INJ IV PRN (08:00)
[2021-04-01] MEDS ORDERED: ONDANSETRON 4 MG/2 ML INJ IV PRN (08:00)
[2021-04-01] MEDS ORDERED: MORPHINE 10 MG/1 ML INJ IM ONE (09:10)
[2021-04-01] MEDS ORDERED: KETOROLAC 30 MG/1 ML INJ IV ONE (09:10)
[2021-04-01] MEDS ORDERED: SODIUM CHLORIDE 0.9% IRRIG SOLN 2000 ML IR ONE (09:11)
[2021-04-01] MEDS ORDERED: SODIUM CHLORIDE 0.9% 50 ML VIAL INFILTRATI ONE (09:11)
[2021-04-01] MEDS ORDERED: MORPHINE 2 MG/1 ML INJ IV PRN (10:23)
[2021-04-01] MEDS ORDERED: KETOROLAC 30 MG/1 ML INJ IV PRN (10:23)
[2021-04-01] MEDS ORDERED: IBUPROFEN 600 MG TAB PO PRN (10:23)
--- NOTE | 2021-04-01 10:41 | Procedure Note ---
Date of procedure: 04/01/21 Pre-op diagnosis: Severe osteoarthritis left knee Post-op diagnosis: same Procedure: Left total knee replacement Procedure The patient was brought to the OR after being given a obturator nerve block and preoperative holding she was placed on the OR table supine position following induction elevation of anesthesia the patient is left lower extremity was prepped and draped in the usual sterile manner. A timeout procedure was done to identify the patient in the correct operative site. The leg was exsanguinated followed by inflation of the pneumatic tourniquet to 300 mmHg. A midline incision was made over the patella was taken down distally towards the tibial tubercle next the medial retinaculum was incised and the patella was inverted examination of the patient's knee joint revealed typical osteoarthritic changes with large bone spurs noted primarily in the medial compartment both the femoral and tibial's articular surfaces exhibited bare bone and large peripheral osteophytes next a large drill bit was used to enter the medullary canal this w as followed by placement of the distal femoral cutting Jig the distal femur was resected approximately 8-9 mm of bone was removed at this time. Attention was turned to the patient's proximal tibia using a external alignment guide the bone was cut using the medial surface as the low point of care was taken to protect the medial collateral ligaments, the tibial articular surface was then sized and a #3 tibial based ray was selected this was followed by placement of the fixation hole or keel into the proximal tibial medullary canal. Attention was turned to the distal femur and using a 4 and 1 cutting block a #3 component was selected AP anterior and posterior as well as Shamfer cuts were made and a #3 tibial tray and femoral component was placed and the knee was then taken to a range of motion she appeared to have stability in both the flexion and extension FOLLOWING this the trial components were removed the knee was then copiously irrigated any remaining soft tissue and bony debris were removed at this time. The cement was mixed followed by the tibial components were inserted beginning with the tibial based tray followed by the polyethylene insert {14mm} The femoral component was added and the excess cement and soft tissue were removed, the knee was held in extension until the cement hardened following hardening of cement the knee was then brought back into of flexion any remaining soft tissue and bony debris were removed at this time. The wound again was irrigated and was closed in a standard routine fashion. Dressings were applied the patient tolerated the procedure there were no complications she was then taken to post anesthesia recovery Anesthesia: MAC, regional Surgeon: KEKE NOEL (Dimitrios Ferguson, 1st assist) Estimated blood loss: minimal Pathology: list (Portions of the distal femur and proximal tibia were sent to pathology) Specimen disposition: to lab Condition: stable Disposition: PACU
--- NOTE | 2021-04-01 11:23 | XRay Report ---
LEFT KNEE 2 VIEW(S) INDICATION / CLINICAL INFORMATION: Postop evaluation COMPARISON: 03/13/2020 FINDINGS: BONES / JOINT(S): No acute fracture or subluxation. Patient is status post left total knee arthroplas ty. Hardware is without complication. SOFT TISSUES: Expected postoperative findings. Redemonstrated popliteal fossa calcified lesion. ADDITIONAL FINDINGS: None. Signer Name: Ócsar Madrid DO Signed: 04/01/2021 11:19 AM Workstation Name: [email or web address]
[2021-04-01] MEDS: HYDROmorphone 1 MG/1 ML INJ IV PRN ×2 (12:11→15:22)
[2021-04-01] MEDS: diphenhydrAMINE 25 MG CAP PO PRN (15:21)
--- NOTE | 2021-04-01 17:39 | Post Anesthesia Evaluation ---
- Post Anesthesia Evaluation Patient Participated: Yes Airway Patent: Yes Stable Respiratory Function: Yes Nausea/Vomiting: No Temp > 96.8F: Yes Pain Manageable: Yes Adequeate Hydration: Yes Anesthesia Complications: No Block Receding Appropriately: Yes Patient on Ventilator: No
[2021-04-01] MEDS: MORPHINE 4 MG/1 ML INJ IV PRN (20:24)
[2021-04-01] MEDS: DOCUSATE SODIUM 100 MG CAP PO SCH (21:18)
[2021-04-02] MEDS: MORPHINE 4 MG/1 ML INJ IV PRN ×3 (00:45→09:51)
[2021-04-02] MEDS: LACTATED RINGERS 1,000 ML IV SCH ×2 (05:50→16:10)
--- NOTE | 2021-04-02 08:55 | Post Anesthesia Evaluation ---
- Post Anesthesia Evaluation Patient Participated: Yes Airway Patent: Yes Stable Respiratory Function: Yes Nausea/Vomiting: No Temp > 96.8F: Yes Pain Manageable: Yes Adequeate Hydration: Yes Anesthesia Complications: No Block Receding Appropriately: Yes Patient on Ventilator: Yes
[2021-04-02] MEDS: ENOXAPARIN 40 MG/0.4 ML INJ SUB-Q SCH ×2 (09:59→10:35)
[2021-04-02] MEDS: DOCUSATE SODIUM 100 MG CAP PO SCH ×2 (09:59→23:23)
[2021-04-02] MEDS: diphenhydrAMINE 25 MG CAP PO PRN (10:00)
[2021-04-02] MEDS: HYDROmorphone 1 MG/1 ML INJ IV PRN ×3 (11:57→20:25)
--- NOTE | 2021-04-02 12:29 | Progress Note ---
Assessment and Plan continue PT and observation Subjective Date of service: 04/02/21 Interval history: c/o pain left leg.... Objective Vital signs: Vital Signs - 12hr 04/02/21 04/02/21 04/02/21 02:09 05:43 08:16 Temperature 98.3 F Pulse Rate 88 Respiratory 18 Rate Blood Pressure 129/77 [Left] O2 Sat by Pulse 96 95 93 Oximetry 04/02/21 08:34 Temperature Pulse Rate Respiratory Rate Blood Pressure [Left] O2 Sat by Pulse 97 Oximetry Incision: draining Weight bearing status: as tolerated - Labs CBC & BMP: 03/31/21 11:15 03/31/21 11:15 Labs: Abnormal lab results 04/01/21 04/02/21 04/02/21 Range/Units 22:02 07:25 11:53 POC Glucose 142 H 144 H 112 H (70-105) mg/dL
[2021-04-02] MEDS: KETOROLAC 30 MG/1 ML INJ IV PRN (13:52)
[2021-04-03] MEDS: HYDROmorphone 1 MG/1 ML INJ IV PRN ×5 (01:00→16:10)
[2021-04-03] MEDS: LACTATED RINGERS 1,000 ML IV SCH (02:38)
[2021-04-03] MEDS: KETOROLAC 30 MG/1 ML INJ IV PRN ×3 (02:38→16:05)
[2021-04-03] MEDS: DOCUSATE SODIUM 100 MG CAP PO SCH ×2 (10:32→21:44)
[2021-04-03] MEDS: ENOXAPARIN 40 MG/0.4 ML INJ SUB-Q SCH (10:33)
[2021-04-03] MEDS: MORPHINE 4 MG/1 ML INJ IV PRN ×2 (18:08→23:27)
[2021-04-03] MEDS: diphenhydrAMINE 25 MG CAP PO PRN (18:42)
[2021-04-04] MEDS: HYDROmorphone 1 MG/1 ML INJ IV PRN ×3 (04:22→20:18)
--- NOTE | 2021-04-04 07:11 | Consultation ---
History of Present Illness - Reason for Consult Consult date: 04/03/21 Medical management Requesting physician: KEKE NOEL - History of Present Illness 60-year-old female with multiple medical problems including coronary artery disease, asthma, bipolar disorder, hyperlipidemia, hypertension, GERD and vitamin D deficiency admitted for postop left total knee arthroplasty care. Patient underwent physical therapy and possible discharge tomorrow as per the yakov mirza. Consult was requested for medical management and weekend coverage. Past History Past Medical History: COPD, GERD, hypertension, hyperlipidemia, other (Bipolar disorder, vitamin D deficiency) Past Surgical History: total knee replacement (Left total knee arthroplasty) Social history: lives with family, full code Family history: hypertension Medications and Allergies Allergies Allergy/AdvReac Type Severity Reaction Status Date / Time banana [Banana] Allergy Intermediate Swelling Verified 10/04/17 07:15 Penicillins Allergy Swelling Verified 10/04/17 07:15 acetaminophen [From Tylenol] AdvReac GI ISSUES Verified 03/24/21 16:20 ibuprofen AdvReac Vomiting , Verified 03/24/21 16:20 SOB oatmeal Allergy Hives Uncoded 05/22/17 11:27 Home Medications Medication Instructions Recorded Confirmed Last Taken Type lisinopriL [Zestril TAB] 40 mg PO QDAY #30 tablet 12/27/15 03/24/21 03/31/21 Rx HYDROcodone/ACETAMINOPHEN [[place] 1 - 2 each PO Q4HR PRN #30 tablet 05/25/17 03/24/21 03/31/21 Rx 10-325 Tablet] Meloxicam [Mobic] 15 mg PO DAILY 05/25/17 03/24/21 03/31/21 History Metformin HCl 500 mg PO BID 05/25/17 03/24/21 03/31/21 History Ziprasidone [Geodon] 40 mg PO BID 05/25/17 04/01/21 03/31/21 History Albuterol Sulfate [Proventil Hfa] 2 puff IH PRN PRN 03/24/21 03/24/21 03/31/21 History Cholecalciferol (Vitamin D3) 50,000 unit PO QWEEK 03/24/21 03/24/21 03/31/21 History [Vitamin D3 50,000UNIT CAP] Ciprofloxacin HCl/Dexameth 1 drop AU BID 03/24/21 03/24/21 03/31/21 History [Ciprodex Otic Suspension] Clopidogrel [Plavix] 75 mg PO QDAY 03/24/21 04/01/21 03/11/21 History Famotidine [Pepcid] 40 mg PO QHS 03/24/21 03/24/21 03/31/21 History [place] Carbonate [[place] 300 mg PO TID 03/24/21 03/24/21 03/31/21 History Carbonate ER] Rosuvastatin Calcium [Crestor] 20 mg PO DAILY 03/24/21 03/24/21 03/31/21 History Sertraline [Zoloft] 50 mg PO QDAY 03/24/21 03/24/21 03/31/21 History Apixaban [Eliquis] 5 mg PO DAILY #30 04/02/21 Unknown Rx Oxycodone HCl/Acetaminophen 1 each PO Q6HR PRN #30 04/02/21 Unknown Rx [Percocet 10/325 mg] Active Meds: Active Medications Diphenhydramine HCl (Diphenhydramine 25 Mg Cap) 25 mg PO Q8H PRN PRN Reason: Itching Last Admin: 04/03/21 18:42 Dose: 25 mg Docusate Sodium (Docusate Sodium 100 Mg Cap) 100 mg PO BID [facility] Last Admin: 04/03/21 21:44 Dose: 100 mg Enoxaparin Sodium (Enoxaparin 40 Mg/0.4 Ml Inj) 40 mg SUB-Q QDAY [facility] Last Admin: 04/03/21 10:33 Dose: 40 mg Hydromorphone HCl (Hydromorphone 1 Mg/1 Ml Inj) 0.5 mg IV Q4H PRN PRN Reason: Pain , Severe (7-10) Last Admin: 04/04/21 04:22 Dose: 0.5 mg Lactated Ringer's (Lactated Ringers) 1,000 mls @ 125 mls/hr IV DIRECT [facility] Last Admin: 04/03/21 02:38 Dose: 125 mls/hr Ketorolac Tromethamine (Ketorolac 30 Mg/1 Ml Inj) 15 mg IV Q4H PRN PRN Reason: Pain, Mild (1-3) Stop: 04/07/21 10:00 Last Admin: 04/03/21 16:05 Dose: 15 mg Morphine Sulfate (Morphine 2 Mg/1 Ml Inj) 2 mg IV Q4H PRN PRN Reason: Pain, Moderate (4-6) Last Admin: 04/01/21 17:46 Dose: 2 mg Morphine Sulfate (Morphine 4 Mg/1 Ml Inj) 4 mg IV Q4H PRN PRN Reason: Pain , Severe (7-10) Last Admin: 04/03/21 23:27 Dose: 4 mg Review of Systems All systems: negative Exam - Constitutional Vitals: Temp Pulse Resp BP Pulse Ox 99.7 F H 97 H 20 166/70 95 04/04/21 04:17 04/04/21 04:17 04/04/21 04:22 04/04/21 04:17 04/04/21 04:17 General appearance: Present: no acute distress, well-nourished - EENT Eyes: Present: PERRL ENT: hearing intact, clear oral mucosa - Neck Neck: Present: supple, normal ROM - Respiratory Respiratory effort: normal Respiratory: bilateral: CTA - Cardiovascular Heart rate: 78 Rhythm: regular Heart Sounds: Present: S1 & S2. Absent: rub, click - Extremities Extremities: pulses symmetrical, No edema, abnormal (Decreased range of motion at the left knee) Extremity abnormal: other (Left knee in dressing) Peripheral Pulses: within normal limits - Abdominal General gastrointestinal: Present: soft, non-tender, non-distended, normal bowel sounds Female genitourinary: Present: normal - Integumentary Integumentary: Present: clear, warm, dry - Musculoskeletal Musculoskeletal: gait normal, strength equal bilaterally - Psychiatric Psychiatric: appropriate mood/affect, intact judgment & insight - Neurologic Neurologic: CNII-XII intact, moves all extremities Results - Labs CBC & Chem 7: 03/31/21 11:15 03/31/21 11:15 Assessment and Plan - Patient Problems (1) S/P total knee arthroplasty Current Visit: Yes Status: Acute Qualifiers: Laterality: left Qualified Code(s): Z96.652 - Presence of left artificial knee joint Plan to address problem: Patient had left total knee arthroplasty Patient undergoing physical therapy and possible discharge on Monday (2) Coronary artery disease Current Visit: Yes Status: Chronic Qualifiers: Coronary Disease-Associated Artery/Lesion type: lummi artery [place] vs. transplanted heart: lummi heart Plan to address problem: Patient on Plavix and Eliquis (3) Bipolar 1 disorder, mixed, severe Current Visit: No Status: Chronic Plan to address problem: Patient on lithium Check lithium level (4) Hypertension Current Visit: Yes Status: Chronic Qualifiers: Hypertension type: primary hypertension Qualified Code(s): I10 - Essential (primary) hypertension Plan to address problem: Continue antihypertensives and adjust medications (5) Hyperlipidemia Current Visit: Yes Status: Chronic Qualifiers: Hyperlipidemia type: mixed hyperlipidemia Qualified Code(s): E78.2 - Mixed hyperlipidemia Plan to address problem: Continue statins (6) Asthma Current Visit: Yes Status: Inactive Qualifiers: Asthma severity: mild Plan to address problem: Albuterol MDI 2 puffs 4 times daily as needed (7) DVT prophylaxis Current Visit: Yes Status: Acute Plan to address problem: On anticoagulation GI prophylaxis (8) Advance care planning Current Visit: Yes Status: Acute Plan to address problem: Disease education conducted, care plan discussed, diagnosis discussed and prognosis discussed. Patient is full code. Patient acknowledges understanding and agreement with care plan. +30 minutes.
[2021-04-04] MEDS ORDERED: ALBUTEROL 8.5 GM MDI INHALATION IH PRN (07:14)
[2021-04-04] MEDS ORDERED: LITHIUM CARBONATE ER 450 MG TAB PO SCH (08:00)
[2021-04-04] MEDS ORDERED: ALBUTEROL 2.5 MG/3 ML NEBU IH PRN (08:00)
[2021-04-04] MEDS ORDERED: METFORMIN HCL 500 MG PO SCH (10:00)
[2021-04-04] MEDS ORDERED: amLODIPine 10 MG TAB PO SCH (10:00)
[2021-04-04] MEDS ORDERED: NON-FORMULARY EACH (Rosuvastatin Calcium [Crestor] 20 MG Tablet) PO SCH (10:00)
[2021-04-04] MEDS ORDERED: LISINOPRIL 10 MG TAB PO SCH (10:00)
[2021-04-04] MEDS: MORPHINE 4 MG/1 ML INJ IV PRN (10:23)
[2021-04-04] MEDS: metFORMIN 500 MG TAB PO SCH ×2 (10:24→16:52)
[2021-04-04] MEDS: LITHIUM CARBONATE ER 300 MG TAB PO SCH ×3 (10:25→21:26)
[2021-04-04] MEDS: DOCUSATE SODIUM 100 MG CAP PO SCH ×2 (10:27→21:25)
[2021-04-04] MEDS: LISINOPRIL 40 MG TAB PO SCH (10:28)
[2021-04-04] MEDS: CLOPIDOGREL 75 MG TAB PO SCH (10:28)
[2021-04-04] MEDS: ZIPRASIDONE 40 MG CAP PO SCH ×2 (10:28→21:30)
[2021-04-04] MEDS: ENOXAPARIN 40 MG/0.4 ML INJ SUB-Q SCH (10:28)
[2021-04-04] MEDS: SERTRALINE 50 MG TAB PO SCH (10:29)
--- NOTE | 2021-04-04 17:04 | Event Note ---
Date: 04/04/21 Patient evaluated; he is on low dynamically stable. Medicine consult was placed for medical management. Patient has elevated blood pressure this morning starting nifedipine 30 mg daily. Continue to monitor.
[2021-04-04] MEDS: NIFEdipine XL 30 MG TAB PO SCH (17:45)
[2021-04-04] MEDS: diphenhydrAMINE 25 MG CAP PO PRN (21:40)
[2021-04-04] MEDS ORDERED: FAMOTIDINE 20 MG TAB PO SCH (22:00)
[2021-04-05] MEDS: HYDROmorphone 1 MG/1 ML INJ IV PRN ×2 (05:00→10:37)
[2021-04-05] MEDS: NIFEdipine XL 30 MG TAB PO SCH (10:04)
[2021-04-05] MEDS: metFORMIN 500 MG TAB PO SCH (10:05)
[2021-04-05] MEDS: ZIPRASIDONE 40 MG CAP PO SCH (10:05)
[2021-04-05] MEDS: DOCUSATE SODIUM 100 MG CAP PO SCH (10:05)
[2021-04-05] MEDS: CLOPIDOGREL 75 MG TAB PO SCH (10:06)
[2021-04-05] MEDS: LISINOPRIL 40 MG TAB PO SCH (10:06)
[2021-04-05] MEDS: SERTRALINE 50 MG TAB PO SCH (10:07)
[2021-04-05] MEDS: LITHIUM CARBONATE ER 300 MG TAB PO SCH (10:07)
[2021-04-05] MEDS: ENOXAPARIN 40 MG/0.4 ML INJ SUB-Q SCH ×2 (10:08→10:17)
[2021-04-05] MEDS: diphenhydrAMINE 25 MG CAP PO PRN (10:22)
--- NOTE | 2021-04-05 11:31 | Event Note ---
Date: 04/05/21 The patient is currently hemodynamically stable, and blood pressure is well controlled. Medicine will be signing off at this time.
[2021-04-05 12:05] VITALS: BP 109/52
--- NOTE | 2021-04-05 13:11 | Discharge Summary ---
Providers - Providers Date of Admission: 04/01/21 05:52 Date of discharge: 04/05/21 Attending physician: KEKE NOEL MD 04/01/21 10:23 Consult to Case Management [CONS] Routine Services Needed at Discharge: Other Notified:: Yes Additional Physician Instructions: Assess Discharge needs. Physical Therapy Evaluation and Treat [CONS] Routine Comment: Status post total knee Reason For Exam: Eval and Treat Weight bearing status?: Full wt bearing Assistive devices?: Yes Primary care physician: JESUS BIGGS Hospitalization Condition: Stable Disposition: HOME HEALTH CARE SERVICE Final Discharge Diagnosis (Prints w/discharge instructions): severe arthritis left knee Exam - Constitutional Vitals: Temp Pulse Resp BP Pulse Ox 98.6 F 72 16 109/52 98 04/05/21 12:05 04/05/21 12:05 04/05/21 12:05 04/05/21 12:05 04/05/21 12:05 Plan Follow up with: JESUS BIGGS MD [Primary Care Provider] - 7 Days Prescriptions: amLODIPine 10 mg PO QDAY #30 tablet Apixaban [Eliquis] 5 mg PO DAILY #30 Oxycodone HCl/Acetaminophen [Percocet 10/325 mg] 1 each PO Q6HR PRN #30 PRN Reason: Pain lisinopriL [Zestril TAB] 40 mg PO QDAY #30 tablet
== END 2021-04-05 14:50 | disposition home health service (06) | DRG 470 ==
LOC: 3A 05:52
PROVIDERS: ADMIT Orthopaedic Surgery; ATTEND Orthopaedic Surgery
PROC: 0SRD0J9 Replacement of Left Knee Joint with Synthetic Substitute, Cemented, Open Approach (ICD-10-PCS; principal; 2021-04-01)
DX: M17.12 Unilateral primary osteoarthritis, left knee (principal); Z20.822 Contact with and (suspected) exposure to COVID-19; J45.909 Unspecified asthma, uncomplicated; E11.9 Type 2 diabetes mellitus without complications; F41.9 Anxiety disorder, unspecified; F20.9 Schizophrenia, unspecified; F31.63 Bipolar disorder, current episode mixed, severe, without psychotic features; E78.2 Mixed hyperlipidemia; K21.9 Gastro-esophageal reflux disease without esophagitis; I10 Essential (primary) hypertension; I25.10 Atherosclerotic heart disease of native coronary artery without angina pectoris; Z91.09 Other allergy status, other than to drugs and biological substances; Z88.0 Allergy status to penicillin; Z88.8 Allergy status to other drugs, medicaments and biological substances; Z91.018 Allergy to other foods; Z82.49 Family history of ischemic heart disease and other diseases of the circulatory system; Z86.73 Personal history of transient ischemic attack (TIA), and cerebral infarction without residual deficits; Z79.899 Other long term (current) drug therapy
CPT/HCPCS: 36415; 64450; 80053; 82962; 85027; 88309; 88311; 99406; G0378; J3490; J7120; C1713; C1776; J1100; J1170; J1650; J1885; J2001; J2250; J2270; J2405; J2704; J3010; J3370; U0003

== ENCOUNTER 2021-05-12 08:57 | Outpatient (CLI) | payer MEDICAID ==
[2021-05-12 09:45] LABS: Chol/HDL Ratio 3.96 %
--- NOTE | 2021-05-12 10:07 | XRay Report ---
Bilateral knees INDICATION: Knee pain FINDINGS: Tricompartmental degenerative change in right knee with joint space narrowing most signific ant patellofemoral joint medial joint compartment. Left total knee arthroplasty is satisfactory posit ion. No acute fracture is seen. Constipation seen soft tissue posteriorly and anteriorly IMPRESSION: Left knee arthroplasty. Advanced degenerative change in right knee. Signer Name: Marco Cary MD Signed: 05/12/2021 10:02 AM Workstation Name: [id number]
== END 2021-05-12 08:58 | disposition home or self-care (01) ==
LOC: LAB 08:57
PROVIDERS: ATTEND Internal Medicine
DX: M17.11 Unilateral primary osteoarthritis, right knee (principal); E11.9 Type 2 diabetes mellitus without complications; M25.569 Pain in unspecified knee; E78.5 Hyperlipidemia, unspecified; Z96.652 Presence of left artificial knee joint
CPT/HCPCS: 36415; 80061; 83036

== ENCOUNTER 2021-08-30 08:39 | Outpatient (CLI) | payer MEDICAID ==
--- NOTE | 2021-08-30 11:40 | XRay Report ---
Left knee 2 views INDICATION: Pain FINDINGS: Left knee arthroplasty appears satisfactory in position. No large effusion is seen. No defi nite evidence for hardware failure. Mild diffuse soft tissue swelling of the knee. Signer Name: Marco Cary MD Signed: 08/30/2021 11:32 AM Workstation Name: [id number]
== END 2021-08-30 08:40 | disposition home or self-care (01) ==
LOC: XRAY 08:39 → EDBD 08:39 → XRAY 08:40
PROVIDERS: ATTEND Orthopaedic Surgery
DX: M25.562 Pain in left knee (principal); M79.89 Other specified soft tissue disorders; Z96.652 Presence of left artificial knee joint

== ENCOUNTER 2021-09-30 08:42 | Outpatient (CLI) | payer MEDICAID ==
[2021-09-30 12:04] LABS: Basophils # (Auto) 0.1 K/mm3 (0.0-0.1); Eosinophils # (Auto) 0.1 K/mm3 (0.0-0.4); Eosinophils % (Auto) 0.9 % (0.0-4.3); Hematocrit 41.6 % (30.3-42.9); Hemoglobin 13.7 gm/dl (10.1-14.3); Lymphocytes % (Auto) 39.9 % (13.4-35.0); Mean Corpuscular HGB Conc 33 % (30-34); Mean Corpuscular Volume 100 fl (79-97); Monocytes # (Auto) 0.7 K/mm3 (0.0-0.8); Monocytes % (Auto) 9.5 % (0.0-7.3); Platelet Count 362 K/mm3 (140-440); Red Blood Count 4.15 M/mm3 (3.65-5.03); Red Cell Distribution Width 14.1 % (13.2-15.2)
[2021-09-30 12:15] LABS: Alanine Aminotransferase 13 units/L (7-56); Albumin 4.7 g/dL (3.9-5); Blood Urea Nitrogen 18 mg/dL (7-17); Calcium 9.7 mg/dL (8.4-10.2); Chol/HDL Ratio 3.23 %; HDL Cholesterol 65 mg/dL (40-59); Hemolysis Index 37; LDL Cholesterol,Direct 121 mg/dL (50-130)
[2021-09-30 12:18] LABS: Creatinine,Urine 85.6 mg/dL (0.1-20.0)
[2021-09-30 12:19] LABS: BUN/Creatinine Ratio 26
[2021-10-04 15:45] LABS: Vitamin D, 25-OH, D2 31 ng/mL
== END 2021-09-30 08:43 | disposition home or self-care (01) ==
LOC: LABHHL 08:42
PROVIDERS: ATTEND Internal Medicine
DX: E11.9 Type 2 diabetes mellitus without complications (principal); E55.9 Vitamin D deficiency, unspecified; E78.5 Hyperlipidemia, unspecified; I10 Essential (primary) hypertension; K76.9 Liver disease, unspecified
CPT/HCPCS: 36415; 80053; 80061; 82043; 82306; 83036; 84443; 85025

== ENCOUNTER 2021-10-04 07:15 | Outpatient (CLI) | payer MEDICAID ==
--- NOTE | 2021-10-05 10:06 | Mammography Report ---
DIGITAL SCREENING MAMMOGRAM WITH CAD, 10/04/2021 CLINICAL INFORMATION / INDICATION: Routine screening mammography. TECHNIQUE: Digital bilateral 2D mammography was obtained in the craniocaudal and mediolateral obliqu e projections. This examination was interpreted with the benefit of Computer-Aided Detection analysis . COMPARISON: 01/10/2018 FINDINGS: Breast Density: There are scattered areas of fibroglandular density. No dominant mass, suspicious calcifications, or architectural distortion in either breast. No interval change. IMPRESSION: No mammographic evidence of malignancy. Follow up recommendation: Routine yearly screening mammogram. BI-RADS Category 1: NEGATIVE A "normal" or negative report should not discourage follow up or biopsy of a clinically significant f inding. A written summary of these findings will be mailed to the patient. The patient will be entered into a mammography reporting system which will generate a reminder letter for the patient's next appointmen t at the appropriate interval. The [employer] recommends yearly mammograms starting at age 40 and continuing as l irma as a woman is in good health. Breast MRI is recommended for women with an approximate 20-25% or greater lifetime risk of breast cancer, including women with a strong family history of breast or ova nando cancer or who have been treated for Hodgkin's disease. Signer Name: Alannah Kim MD Signed: 10/05/2021 10:02 AM Workstation Name: [employer] [facility]
== END 2021-10-04 07:16 | disposition home or self-care (01) ==
LOC: MAMMO 07:15
PROVIDERS: ATTEND Internal Medicine
DX: Z12.31 Encounter for screening mammogram for malignant neoplasm of breast (principal)
CPT/HCPCS: 77067

== ENCOUNTER 2021-11-03 08:25 | Emergency (ER) | payer MEDICAID ==
[2021-11-03 08:35] VITALS: BP 112/91
== END 2021-11-03 14:44 | disposition left against medical advice (07) ==
LOC: ED 08:25
DX: M54.2 Cervicalgia (principal); M54.9 Dorsalgia, unspecified; Z53.21 Procedure and treatment not carried out due to patient leaving prior to being seen by health care provider